=== PATIENT | male | born 1960 | race African-American/Black ===

== ENCOUNTER 2017-12-26 19:57 | Emergency (ER) | payer BC, OTHER ==
[~2017-12-26] VITALS: Ht 182.9 cm; Wt 90.7 kg
[2017-12-26 20:10] VITALS: BP_SYST 132
[2017-12-26] MEDS ORDERED: DIPH-TET-PERTUS Vaccine 0.5 ML VIAL (ADACEL) I.M. ONE (20:30)
[2017-12-26 20:50] VITALS: BP_SYST 126
== END 2017-12-26 20:50 | disposition home or self-care (01) ==
LOC: SED 19:57
DX: S91.031A Puncture wound without foreign body, right ankle, initial encounter (principal); W29.4XXA Contact with nail gun, initial encounter; Y93.89 Activity, other specified; Y92.89 Other specified places as the place of occurrence of the external cause; Y99.8 Other external cause status
CPT/HCPCS: 90715; 99284